=== PATIENT | male | born 1965 | race Caucasian/White ===

== ENCOUNTER 2018-08-01 | Emergency (ER) | payer SELFPAY ==
--- NOTE | 2018-08-01 00:26 | PDOC ---
History of Present Illness - General Stated Complaint: R EYE INJURY Time Seen by Provider: 08/01/18 00:21 History Source: Patient Exam Limitations: No Limitations - History of Present Illness Initial Comments: 08/01/18 03:32 Best Contact: PCP: Dr. Lopez Pmhx: ACS Pshx: 2016: Cardiac bypass Allergies:NKDA FH:00 Social Hx: Cigarettes/ 0 Alcohol/ social Drugs/ 0 LMP:N/A 53-year-old male presents to the emergency department complaining of 729/10 sharp nonradiating intermittent epigastric abdominal discomfort 3 hours. Patient states he was resting at midnight the pain gradually came on. The pain is exacerbated on touch and there are no alleviating factors. Patient denies nausea/vomiting, fever/chills, headache, dizziness, lightheadedness, facial pains, nasal congestion, rhinorrhea, earache, sore throat, neck pains, back pains, shortness of breath, flank pains, urinary symptoms: Frequency/urgency/ hesitancy, hematuria. Past History - Past Medical History Allergies/Adverse Reactions: Allergies Allergy/AdvReac Type Severity Reaction Status Date / Time No Known Allergies Allergy Verified 08/01/18 00:36 Home Medications: Ambulatory Orders Diazepam [Valium -] 5 mg PO Q8H PRN #2 tablet 04/21/14 Naproxen [Naprosyn -] 500 mg PO BID PRN #14 tablet 04/21/14 - Suicide/Smoking/Psychosocial Hx Smoking History: Never smoked Have you smoked in the past 12 months: No Hx Alcohol Use: No Substance Use Type: None Review of Systems - Review of Systems Able to Perform ROS?: Yes Comments:: 08/01/18 03:35 CONSTITUTIONAL: Absent: fever, chills, diaphoresis, generalized weakness, malaise, loss of appetite HEENT: Absent: rhinorrhea, nasal congestion, throat pain, throat swelling, difficulty swallowing, mouth swelling, ear pain, eye pain, visual Changes CARDIOVASCULAR: Absent: chest pain, loss of consciousness, palpitations, irregular heart rate, peripheral edema RESPIRATORY: Absent: cough, shortness of breath, dyspnea with exertion, orthopnea, wheezing, stridor, hemoptysis GASTROINTESTINAL: +epigastric pain Absent: abdominal distension, nausea, vomiting, diarrhea, constipation, melena, hematochezia GENITOURINARY: Absent: dysuria, frequency, urgency, hesitancy, hematuria, flank pain, genital pain MUSCULOSKELETAL: Absent: myalgia, arthralgia, joint swelling SKIN: Absent: rash, itching, pallor HEMATOLOGIC/IMMUNOLOGIC: Absent: easy bleeding, easy bruising, lymphadenopathy, frequent infections ENDOCRINE: Absent: unexplained weight gain, unexplained weight loss, heat intolerance, cold intolerance NEUROLOGIC: Absent: headache, focal weakness or paresthesias, dizziness, unsteady gait, seizure, mental status changes, bladder or bowel incontinence PSYCHIATRIC: Absent: anxiety, depression, suicidal or homicidal ideation, hallucinations. Is the patient limited [place]ian proficient: No *Physical Exam - Physical Exam Comments: 08/01/18 03:36 GENERAL: Well developed, well nourished. Awake and alert. No acute distress. HEENT: Normocephalic, atraumatic. PERRLA, EOMI. No conjunctival pallor. Sclera are non- icteric. Moist mucous membranes. Oropharynx is clear. NECK: Supple. Full ROM. No JVD. Carotid pulses 2+ and symmetric, without bruits. No thyromegaly. No lymphadenopathy. CARDIOVASCULAR: Regular rate and rhythm. No murmurs, rubs, or gallops. Distal pulses are 2+ and symmetric. PULMONARY: No evidence of respiratory distress. Lungs clear to auscultation bilaterally. No wheezing, rales or rhonchi. ABDOMINAL: +epigastric pain on palp Soft. Non-distended. No rebound or guarding. No organomegaly. Normoactive bowel sounds. MUSCULOSKELETAL Normal range of motion at all joints. No bony deformities or tenderness. No CVA tenderness. EXTREMITIES: No cyanosis. No clubbing. No edema. No calf tenderness. SKIN: Warm and dry. Normal capillary refill. No rashes. No jaundice. NEUROLOGICAL: Alert, awake, appropriate. Cranial nerves 2-12 intact. No deficits to light touch and temperature in face, upper extremities and lower extremities. No motor deficits in the in face, upper extremities and lower extremities. Normoreflexic in the upper and lower extremities. Normal speech. Toes are down- going bilaterally. Gait is normal without ataxia. PSYCHIATRIC: Cooperative. Good eye contact. Appropriate mood and affect. *DC/Admit/Observation/Transfer Diagnosis at time of Disposition: Right orbital fracture Qualifiers: Encounter type: initial encounter Fracture type: closed Qualified Code(s): S02.81XA - Fracture of other specified skull and facial bones, right side, initial encounter for closed fracture - Discharge Dispostion Disposition: TRANSFER ACUTE CARE/OTHER HOSP - Referrals - Patient Instructions - Post Discharge Activity - Transfer to Acute Care Facility Receiving Facility: [facility]. Progress Note - Progress Note Progress Note: 0248hrs: Called [facility]/ [id number] TO [facility] transfer line. Dr. [employer] sales consultant for facial trauma 0251hrs: Case accepted
[2018-08-01 00:38] VITALS: BMI 25.1
[2018-08-01] MEDS ORDERED: TETRACAINE 0.5% HCL 0.6ML DROPPER.BOTTLE OD ONE (01:50)
[2018-08-01] MEDS ORDERED: TETANUS AND DIPHTHERIA TOXOID 0.5 ML DISP.SYRIN IM ONE (01:51)
[2018-08-01] MEDS ORDERED: TETRACAINE 0.5% OPHTH SOLN 2 ML BOTTLE ONE (02:01)
[2018-08-01] MEDS ORDERED: FLUORESCEIN NA 1 EA STRIP ONE (02:18)
[2018-08-01 03:22] VITALS: BP 128/77; PULSE 69; TEMP 98.6
== END 2018-08-01 03:53 | disposition short-term general hospital (02) ==
LOC: JER
PROC: 3E0234Z Introduction of Serum, Toxoid and Vaccine into Muscle, Percutaneous Approach (ICD-10-PCS; principal; 2018-08-01)
DX: S02.81XA Fracture of other specified skull and facial bones, right side, initial encounter for closed fracture (principal); X58.XXXA Exposure to other specified factors, initial encounter; Y93.89 Activity, other specified; Y92.9 Unspecified place or not applicable
CPT/HCPCS: 70480-TC; 70486-TC; 99284-25

== ENCOUNTER 2022-05-13 14:08 | Emergency (ER) | payer SELFPAY ==
[2022-05-13 14:33] VITALS: TEMP 98.2; BMI 29.5
[2022-05-13 18:52] LABS: BASO % 0.8 % (0-2.0); EOS % 1.6 % (0-4.5); HEMATOCRIT 44.4 % (35.4-49); HEMOGLOBIN 14.9 GM/dL (11.7-16.9); MCH 30.6 pg (25.7-33.7); MCHC 33.5 g/dl (32.0-35.9); MEAN CELL VOLUME 91.3 fl (80-96); MEAN PLT VOLUME 10.4 fl (7.5-11.1); MONO % 6.5 % (3.8-10.2); NEUT % 44.1 % (42.8-82.8); PLATELET COUNT 198 10^3/uL (134-434); RBC 4.86 M/mm3 (4.00-5.60); RDW 13.5 % (11.9-15.9); WHITE BLOOD COUNT 4.6 K/mm3 (4.0-10.0)
[2022-05-13 19:16] LABS: ALBUMIN 4.1 g/dl (3.4-5.0); BLOOD UREA NITROGEN 16.5 mg/dL (7-18)
[2022-05-13 19:19] LABS: CREATININE 0.9 mg/dL (0.55-1.3)
[2022-05-13 19:20] LABS: BILIRUBIN,TOTAL 0.6 mg/dL (0.2-1); TOT PROT 7.4 g/dl (6.4-8.2)
[2022-05-13 20:50] VITALS: PULSE 62
== END 2022-05-13 21:42 | disposition home or self-care (01) ==
LOC: JER 14:08
DX: R07.9 Chest pain, unspecified (principal)
CPT/HCPCS: 36415; 70450-TC; 71046-TC-FY; 80053; 84484; 85025; 93005; 93010; 99285-25